=== PATIENT | female | born 1945 | race Hispanic/Latino ===

== ENCOUNTER → 2021-06-23 | Outpatient (CLI) | payer MEDICARE ==
[2021-06-23 10:49] LABS: HEMOGLOBIN 10.4 g/dL (12.0-16.0)
[2021-06-23 11:10] LABS: INR 1.4; PROTHROMBIN TIME 17.4 seconds (11.9-14.5)
[2021-06-23 11:11] LABS: PARTIAL THROMBOPLASTIN TIME 34.7 seconds (23.8-35.5)
== END ==
LOC: US 10:00
PROVIDERS: ATTEND Internal Medicine Gastroenterology
DX: E11.9 Type 2 diabetes mellitus without complications (principal); K74.69 Other cirrhosis of liver; I10 Essential (primary) hypertension; Z71.3 Dietary counseling and surveillance; E66.01 Morbid (severe) obesity due to excess calories
CPT/HCPCS: 36415; 76705; 85014; 85049; 85610; 85730